=== PATIENT | female | born 1945 | race Caucasian/White ===

== ENCOUNTER → 2020-12-26 | Day surgery (SDC) | payer OTHER ==
[~2020-12-26] VITALS: Ht 154.9 cm; Wt 69.8 kg
[~2020-12-26] MED LIST: BIOTIN10000 MCG PO; CALCIUM + MAGNESIUM PO; CENTRUM SILVER1 EAC1 PO; CO Q-10100 MG PO; LIPITOR40 MG PO; LOTREL 5-20 MG1 EACH PO; LYSINE1000 MG PO; PRILOSEC20 MG PO; STOOL SOFTENER100 MG PO; TOPROL XL 50 MG50 MG PO; VITAMIN B-121000 MC1 PO; VITAMIN C1000 MG PO; VITAMIN D325 MCG PO; XARELTO10 MG PO
[2020-12-26 07:37] LABS: HCT 43.5 % (37.0-47.0); HGB 14.6 g/dl (12.5-16.0); MCH 32.3 pg (25.0-31.0); MCHC 33.6 g/dL (32.0-36.0); MCV 96.2 fL (78.0-100.0); MPV 10.1 fL (6.0-9.5); RBC 4.52 M/uL (4.20-5.40); RDW 13.3 % (11.5-14.0); WBC 7.5 K/uL (4.0-10.5)
[2020-12-26 08:35] LABS: ALBUMIN 3.6 g/dL (3.4-5.0); BILIRUBIN - TOTAL 0.3 mg/dL (0.2-1.0); BUN/CREAT RATIO (CALC) 20.6 RATIO; CREATININE 0.63 mg/dL (0.51-0.95); GLOBULIN (CALCULATION) 3.6 g/dL; POTASSIUM 4.1 mmol/L (3.5-5.1); TOTAL PROTEIN 7.2 g/dL (6.4-8.2)
== END | disposition home or self-care (01) ==
LOC: FAS 06:54
PROVIDERS: Surgery
DX: Z12.11 Encounter for screening for malignant neoplasm of colon (principal); K57.30 Diverticulosis of large intestine without perforation or abscess without bleeding; Z90.49 Acquired absence of other specified parts of digestive tract
CPT/HCPCS: 36415; 80053; J2250; J2704; J7120